=== PATIENT | female | born 1960 | race Caucasian/White ===

== ENCOUNTER 2021-06-03 08:21 | Observation (INO) ==
[2021-06-03 08:51] LABS: Basophils % 0.4 % (0.0-0.8); Eosinophils # 0.3 10*3/uL (0.0-0.87); Hematocrit 35.4 VOL% (35.7-47.0); Hemoglobin 10.7 GM/DL (12.0-16.0); Immature Granulocytes % 0.4 %; Immature Granulocytes Absolute 0.02 #; Lymphocytes # 1.1 10*3/uL (1.4-4.0); Lymphocytes % 21.9 % (21.3-54.2); Mean Corpuscular HGB Conc 30.2 GM/DL (32-36); Mean Corpuscular Volume 89.4 FL (87-102); Mean Platelet Volume 10.6 FL (9.6-12.0); Neutrophils % 67.3 % (38.7-73.9); Platelet Count 232 T/CUMM (130-400); Red Blood Count 3.96 MC/CUMM (3.8-5.5); Red Cell Distribution Width 16.8 % (9.3-17.3)
[2021-06-03 09:12] LABS: Albumin 3.3 G/DL (3.4-5.0); Bilirubin,Total 0.5 MG/DL (0.20-1.00); Calcium 9.2 MG/DL (8.5-10.1); Osmolality,Calculated 287.3 MOS/KG (273-304); Potassium 3.9 MMOL/L (3.5-5.1); Total Protein 6.8 G/DL (6.4-8.2)
[2021-06-03] MEDS ORDERED: FUROSEMIDE 40 MG/4 ML VIAL IV STA (09:21)
[2021-06-03] MEDS ORDERED: BISACODYL 5 MG TABLET PO PRN (12:11)
[2021-06-03] MEDS ORDERED: ONDANSETRON 4 MG/2 ML VIAL IV PRN (12:11)
[2021-06-03] MEDS ORDERED: SIMETHICONE CHEW 125 MG TABLET PO PRN (12:11)
[2021-06-03] MEDS ORDERED: hydrALAZINE 20 MG/1 ML VIAL IV PRN (12:11)
[2021-06-03] MEDS ORDERED: diphenhydrAMINE CAP 25 MG CAPSULE PO PRN (12:11)
[2021-06-03] MEDS ORDERED: MORPHINE 2 MG/1 ML SYRINGE IV PRN (12:11)
[2021-06-03] MEDS ORDERED: CALCIUM CARBONATE CHEW 500 MG TABLET PO PRN (12:11)
[2021-06-03] MEDS ORDERED: LACTULOSE 20 GM/30 ML UDCUP PO PRN (12:11)
[2021-06-03] MEDS ORDERED: ACETAMINOPHEN 325 MG TABLET PO PRN (12:11)
[2021-06-03] MEDS ORDERED: ALUMINUM/MAGNES/SIMETH MAX STR 30 ML UDCUP PO PRN (12:11)
[2021-06-03] MEDS ORDERED: ZALEPLON 5 MG CAPSULE PO PRN (12:11)
[2021-06-03] MEDS ORDERED: MAGNESIUM SULF RIDER 2 GM/50 ML PREMIX IV PRN (12:12)
[2021-06-03] MEDS ORDERED: POTASSIUM CHLORIDE 20 MEQ TABLET PO PRN (12:12)
[2021-06-03] MEDS ORDERED: MAGNESIUM SULF RIDER 4 GM/100 ML PREMIX IV PRN (12:12)
[2021-06-03] MEDS ORDERED: ENOXAPARIN 40 MG/0.4 ML SYRINGE SUBCUT SCH (12:30)
[2021-06-03] MEDS ORDERED: SODIUM CHLORIDE 0.45% 1,000 ML IV SCH (12:30)
[2021-06-03] MEDS: METHOCARBAMOL 500 MG TABLET PO SCH ×2 (17:00→20:57)
[2021-06-03] MEDS: GABAPENTIN 400 MG CAPSULE PO SCH ×2 (17:00→20:51)
[2021-06-03] MEDS ORDERED: PNEUMOCOCCAL VACCINE (13 VALENT) 0.5 ML SYRINGE IM ONE (17:17)
[2021-06-03] MEDS ORDERED: INFLUENZA VIRUS VACCINE 0.5 ML SYRINGE IM ONE (17:17)
[2021-06-03] MEDS: DICLOFENAC 1% GEL 100 GM TUBE TOP SCH ×2 (17:18→20:52)
[2021-06-03] MEDS ORDERED: CARBIDOPA/LEVODOPA 25-100 MG TABLET PO SCH (21:00)
[2021-06-03] MEDS ORDERED: DULoxetine 30 MG CAPSULE PO SCH (21:00)
[2021-06-03] MEDS ORDERED: LATANOPROST 0.005% OPH SOLN 2.5 ML BOTTLE BOTH EYES SCH (21:00)
[2021-06-03] MEDS ORDERED: hydrALAZINE 25 MG TABLET PO SCH (21:00)
[2021-06-03] MEDS ORDERED: APIXABAN 5 MG TABLET PO SCH (21:00)
[2021-06-04 04:26] LABS: Basophils % 0.5 % (0.0-0.8); Eosinophils # 0.2 10*3/uL (0.0-0.87); Eosinophils % 5.3 % (0.00-10.9); Hematocrit 31.8 VOL% (35.7-47.0); Hemoglobin 9.7 GM/DL (12.0-16.0); Immature Granulocytes % 0.3 %; Immature Granulocytes Absolute 0.01 #; Mean Corpuscular HGB Conc 30.5 GM/DL (32-36); Mean Corpuscular Volume 87.8 FL (87-102); Mean Platelet Volume 11.1 FL (9.6-12.0); Monocytes % 5.8 % (1.7-12.7); Neutrophils % 61.1 % (38.7-73.9); Platelet Count 247 T/CUMM (130-400); Red Blood Count 3.62 MC/CUMM (3.8-5.5); Red Cell Distribution Width 16.8 % (9.3-17.3); White Blood Count 3.8 T/CUMM (4-12)
[2021-06-04 04:40] LABS: Calcium 8.9 MG/DL (8.5-10.1); Osmolality,Calculated 285.1 MOS/KG (273-304); Potassium 3.4 MMOL/L (3.5-5.1)
[2021-06-04 05:09] LABS: Risk Ratio 3.4; VLDL Cholesterol 24.4 MG/DL
[2021-06-04] MEDS: METHOCARBAMOL 500 MG TABLET PO SCH ×2 (06:46→13:21)
[2021-06-04] MEDS: GABAPENTIN 400 MG CAPSULE PO SCH (08:47)
[2021-06-04] MEDS: DICLOFENAC 1% GEL 100 GM TUBE TOP SCH ×2 (08:47→14:27)
[2021-06-04] MEDS ORDERED: FOLIC ACID 400 MCG PO SCH (09:00)
[2021-06-04] MEDS ORDERED: CHOLECALCIFEROL 1,000 UNIT TABLET PO SCH (09:00)
[2021-06-04] MEDS ORDERED: FUROSEMIDE 40 MG/4 ML VIAL IV SCH (09:00)
[2021-06-04] MEDS ORDERED: ENOXAPARIN 120 MG/0.8 ML SYRINGE SUBCUT SCH (09:00)
[2021-06-04] MEDS ORDERED: PANTOPRAZOLE 40 MG TABLET PO SCH (09:00)
[2021-06-04] MEDS ORDERED: MELOXICAM 7.5 MG TABLET PO SCH (09:00)
[2021-06-04 11:42] VITALS: BP 174/83
[2021-06-09] MEDS ORDERED: METHOTREXATE 2.5 MG TABLET PO SCH (09:00)
== END 2021-06-04 14:35 | disposition home or self-care (01) ==
LOC: N.ED 08:21 → N.EDINP 08:21 → N.TELEN 09:56
PROVIDERS: ADMIT Internal Medicine Cardiovascular Disease; ATTEND Internal Medicine Cardiovascular Disease